=== PATIENT | female | born 1975 | race Two or more races ===

== ENCOUNTER → 2018-03-30 15:47 | Outpatient (CLI) | payer OTHER, SELFPAY ==
--- NOTE | 2018-03-30 | MM_ITS ---
MM Dig screening mamm BI w/CAD CAD Screening COMPARISON: Digital mammograms 03/15/2017 and 12/14/2015 INDICATION: There is no personal or family history of breast cancer TECHNIQUE: Standard CC and MLO images were obtained. R2 CAD reviewed. FINDINGS: Diffuse fibroglandular densities are seen throughout both breasts. Findings of the lateral symmetrical. There is no suspicious lesion and there are no suspicious microcalcifications. There are small nodes in both axilla. IMPRESSION: Fibrofatty parenchyma no suspicious lesion seen BI-RADS Category: 1 Negative RECOMMENDED FOLLOW-UP: 1YR - 1 YEAR FOLLOW-UP (A letter has been sent to the patient regarding results of the study.)
== END ==
PROVIDERS: Visit Provider Nurse Practitioner Obstetrics & Gynecology
DX: Z12.31 Encounter for screening mammogram for malignant neoplasm of breast (principal)
CPT/HCPCS: 77067

== ENCOUNTER → 2019-11-25 07:39 | Outpatient (CLI) | payer OTHER, SELFPAY ==
--- NOTE | 2019-11-25 07:42 | MM_ITS ---
PROCEDURE: MM DIG SCREENING MAMM BI W/CAD Patient Age:44Y CLINICAL INDICATION: SCREENING 44-year-old. No hormones no new complaints noncontributory family history COMPARISON: DMDBAV DIG MAMM-DX BILAT W/ADD VIEWS from 09/08/2011 DXUL MAMM [id number] from 03/14/2012 DMDBAV DIG MAMM-DX AMMY W ADD VIEWS from 12/09/2014 DMDB DIG MAMM-DX AMMY from 12/14/2015 DMDB DIG MAMM-DX AMMY W/CAD from 03/15/2017 DMDXUWAL DIG MAMM-DX UNI LT W/AVS W/CAD from 09/04/2017 [facility] MM Dig screening mamm BI w/CAD from 03/30/2018 TECHNIQUE: Standard CC and MLO images were obtained. R2 CAD reviewed. FINDINGS: Moderate dense heterogeneous breast bilaterally; technique on today's mammogram is overall angle shear operator and brighter today which accentuates all of fibroglandular elements. Consideration technique, and comparison with multiple prior studies are helpful.. Left breast: Area density noted on today's CC view was present CC spot view from 2016. But seems to dissipate on the MLO view, thus I favor reflects stable features. However follow-up left mammogram 6-8 months suggested to confirm stability: Right breast: No discrete or definitive unique new areas of concern when compared back to multiple studies, dating back to 2010 but areas of density nodularity change one-view to another and seem to be present since prior studies with some merely accentuated by today's angle shear operator technique.. Suggest right mammogram in 6-8 months and the patient returns IMPRESSION: Heterogeneous moderately dense breast There is scattered small focal areas of asymmetric density bilaterally which strongly the believe are stable-but appear accentuated by today's technique and positioning Because of this suggest bilateral mammogram in 6-8 months to better confirm stability hopefully with routine protocol thereafter bilateral , BI-RAD Category: 3 Probably Benign Finding Short Term Follow-up FOLLOW-UP: 6M -8 Month Follow-up bilateral (A letter has been sent to the patient regarding results of the study.) Dictated by: Sourav Scales MD 12/03/2019 10:09 Electronically signed by Sourav Scales MD in [place] 12/03/2019 10:09
== END ==
PROVIDERS: PCP Nurse Practitioner Obstetrics & Gynecology; Visit Provider Nurse Practitioner Obstetrics & Gynecology
DX: Z12.31 Encounter for screening mammogram for malignant neoplasm of breast (principal)
CPT/HCPCS: 77067

== ENCOUNTER 2020-07-09 17:38 | Emergency (ER) | payer OTHER, SELFPAY ==
[2020-07-09 18:13] VITALS: BP 135/87; PULSE 94; RESP 19; TEMP 36.6; O2SAT 100; BMI 22.3
--- NOTE | 2020-07-09 18:31 | HMH.EDUTC ---
[facility] [place] Clinical Impression: Sinusitis Qualifiers: Sinusitis location: unspecified location Chronicity: unspecified Qualified Code(s): J32.9 - Chronic sinusitis, unspecified Disposition: Home, Self-Care Condition on Discharge: Good Instructions: Sinusitis, Sinus Headache, DI for Sinusitis, DI for Dizziness-Nonvertigo Additional Instructions: Take medication as prescribed *Follow up with Family Doctor if no improvement or any worsening of symptoms Straight to ER if any life threatening symptoms, worse headache of her life or loss of vision or Syncope Return if needed You was given shot of SoluMedrol in the [facility] for the next several days your blood sugar may be slightly elevated and should return to normal Prescriptions: Amoxicillin/Potassium Clav [Augmentin 875-125 Tablet] 1 tab PO Q12H 7 Days #14 tab Transmission Status: Received by [id number] predniSONE [Deltasone 5mg tablet] 5 mg PO BID 5 Days #10 tab Transmission Status: Sent to [facility] Fluticasone Propionate [Flonase 50mcg nasal spray 16gm] 1 - 2 spr NS DAILY #1 bottle Transmission Status: Received by [id number] Referrals: PCPNo [Primary Care Provider] - As needed Time of Disposition: 18:56 Medical Decision Making - Aleksandar Inquiry Pt receiving controlled substance: No Aleksandar was queried for this patient: No Vital Signs: 07/09/20 18:13 Temperature 97.8 F Temperature Source Oral Pulse Rate [Right Brachial] 94 H Respiratory Rate 19 Blood Pressure [Right Arm] 135/87 Blood Pressure Mean [Right Arm] 103 Blood Pressure Source [Right Arm] Automatic Cuff Blood Pressure Position [Right Arm] Sitting 02 Sat by Pulse Oximetry 100 Oxygen Delivery Method Room Air [facility] [place] HPI - General Stated complaint: Headache, dizziness Time Seen by Provider: 07/09/20 18:31 Mode of Arrival: Ambulatory Source of Information: Patient Limitations: No Limitations Description of Symptoms (Recalled from Triage Doc. by RN): PATIENT C/O DIZZINESS X 2 WEEKS, AND VOMITING AND HEADACHE SINCE THIS MORNING HEENT Symptoms (Recalled from RN notes): Yes Resp Symptoms (Recalled from RN notes): No Skin Symptoms (Recalled from RN notes): No MS Symptoms (Recalled from RN notes): No Functional Status (Recalled from RN notes): WNL - History of Present Illness Provider Complaint: Patient states that she has been having sinus pain and pressure along with dizziness on and off when she bends over or moves quickly, pressure in her ears and at times if she moves quick it makes her sick at her stomach States that today it was still uncomfortable and her head was hurting so they brought her in Patient understands [place] but unable to speak [place] so had to use [employer] - Related Data Home Medications Medication Instructions Recorded Confirmed metformin 500 mg tablet 1,000 mg PO BID 01/03/18 07/09/20 Previous Rx's Medication Instructions Recorded Amoxicillin/Potassium Clav 1 tab PO Q12H 7 Days #14 tab 07/09/20 [Augmentin 875-125 Tablet] Fluticasone Propionate [Flonase 1 - 2 spr NS DAILY #1 bottle 07/09/20 50mcg nasal spray 16gm] predniSONE [Deltasone 5mg 5 mg PO BID 5 Days #10 tab 07/09/20 tablet] Allergies Allergy/AdvReac Type Severity Reaction Status Date / Time No Known Allergies Allergy Verified 07/09/20 18:18 - Worker's Comp Is this a Worker's Comp case?: No [facility] History - Hepatitis A Screen Drug use history?: No High risk sexual behaviors?: No History of sexually transmitted infection?: No Currently employed?: No Childcare worker?: No Do you have indoor plumbing?: Yes Do you have electricity?: Yes Attestation statement:: This patient has been screened for Hepatitis A risk factors. I have reviewed the patient's past medical history: Yes Medical History: Reports:: Diabetes Mellitus Type 2 Other Medical History: Reports: Other (High Cholesterol) Other Surgeries: Yes: Fra
[2020-07-09 19:02] VITALS: BP 135/87; PULSE 94; RESP 19; TEMP 36.6; O2SAT 100
== END 2020-07-09 19:04 | disposition home or self-care (01) ==
PROVIDERS: Emergency Provider Nurse Practitioner
DX: J32.9 Chronic sinusitis, unspecified (principal); E11.9 Type 2 diabetes mellitus without complications; Z79.84 Long term (current) use of oral hypoglycemic drugs
CPT/HCPCS: 99201

== ENCOUNTER → 2020-08-05 14:54 | Outpatient (CLI) | payer OTHER, SELFPAY ==
--- NOTE | 2020-08-05 14:59 | MM_ITS ---
PROCEDURE: MM DIG MAMM BI DX W/CAD Digital Breast Tomosynthesis Included CLINICAL INDICATION: ABN MAMM Follow-up abnormal mammogram COMPARISON: MG DMDB DIG MAMM-DX AMMY from 12/14/2015 MG DMDXUWAL DIG MAMM-DX UNI LT W/AVS W/CAD from 09/04/2017 MG [facility] MM Dig screening mamm BI w/CAD from 03/30/2018 MG MM DIG SCREENING MAMM BI W/CAD from 11/25/2019 TECHNIQUE: Standard CC and MLO images and 3D Tomosynthesis was obtained. R2 CAD reviewed. FINDINGS: Average fibroglandular tissue. No malignant appearing mass or malignant-appearing microcalcification. Unremarkable appearing right breast. Asymmetric density is present in the inferior aspect of the left breast and in the central aspect of the left breast both seen on the MLO view. These areas may only be due to overlying fibroglandular tissue. There are slightly more prominent than when compared to the previous exam. Recommend 3 month follow-up with spot compression views and left breast ultrasound. IMPRESSION: Asymmetry in left breast inferiorly and centrally. Suggest 3 month follow-up mammogram with spot views and left breast ultrasound if densities persist. BI-RAD Category: 3 Probably Benign Finding Short Term Follow-up FOLLOW-UP: 3M 3 Month Follow-up (A letter has been sent to the patient regarding results of the study.) Dictated by: Jeovany Frey MD 08/10/2020 10:28 Jeovany Frey MD in [place] 08/10/2020 10:28
== END ==
PROVIDERS: Visit Provider Nurse Practitioner
DX: R92.8 Other abnormal and inconclusive findings on diagnostic imaging of breast (principal)
CPT/HCPCS: 77062; 77066; G0279

== ENCOUNTER → 2021-01-07 13:46 | Outpatient (CLI) | payer OTHER, SELFPAY ==
--- NOTE | 2021-01-07 13:55 | MM_ITS ---
PROCEDURE: MM DIG MAMM DX UNILAT LT CAD Digital Breast Tomosynthesis Included CLINICAL INDICATION: DAVID - 3 mos fu lt breast Follow-up abnormal mammogram COMPARISON: US BL US BREAST-LT COMPLETE W/AXILLA from 09/04/2017 MG [facility] MM Dig screening mamm BI w/CAD from 03/30/2018 MG MM DIG SCREENING MAMM BI W/CAD from 11/25/2019 MG MM DIG MAMM BI DX W/CAD from 08/05/2020 US US BREAST LT COMPLETE from 01/07/2021 TECHNIQUE: Standard images performed along with spot compression views and left breast ultrasound FINDINGS: The asymmetric densities in the inferior and superior aspect of the left breast is less prominent and not persistent on the focal spot compression view.. No malignant appearing mass or malignant-appearing microcalcification. Left breast ultrasound: There is a 7 by 6 mm solid-appearing nodule in the 12 o'clock region of the left breast near the nipple. This is not significantly changed dating back to 09/04/2017exam exam. This has a linear area of increased echogenicity centrally and may be due to a intramammary lymph node or a fibroadenoma. At 9 o'clock there is a 6 by 4 mm septated appearing nodule may be due to small septated cyst. IMPRESSION: Benign findings. Recommend resume screening mammogram in July 2021 BI-RAD Category: 2 Benign Finding(s) FOLLOW-UP: 6M 6Month Follow-up (A letter has been sent to the patient regarding results of the study.) Dictated by: Jeovany Frey MD 01/08/2021 13:39 Jeovany Frey MD in [place] 01/08/2021 13:39
== END ==
PROVIDERS: PCP Family Medicine; Visit Provider Family Medicine
DX: R92.8 Other abnormal and inconclusive findings on diagnostic imaging of breast (principal)
CPT/HCPCS: 76641; 77061; 77065; G0279

== ENCOUNTER → 2021-12-17 12:32 | Outpatient (CLI) | payer OTHER, SELFPAY | PROVIDERS: Visit Provider Nurse Practitioner | DX: U07.1 COVID-19 (principal) | CPT/HCPCS: C9803; U0003; U0005 ==

== ENCOUNTER 2022-02-04 10:00 | Emergency (ER) | payer OTHER, SELFPAY ==
[2022-02-04 10:15] VITALS: BP 122/83; PULSE 70; RESP 15; O2SAT 100
[2022-02-04 10:17] VITALS: BP 122/83; PULSE 98; RESP 16; TEMP 37.1; O2SAT 99; BMI 23.4
[2022-02-04 10:28] LABS: Microscopic, Urine URINE MICROSCOPIC (MICROSCOPIC)
[2022-02-04 10:39] LABS: Appearance,Urine CLEAR (Clear); Bilirubin,Urine Negative (Negative); Blood, Urine 3+ (Negative); Color,Urine YELLOW (Yellow); Glucose,Urine (UA) 3+ (Negative); Ketones,Urine Negative (Negative); Leukocyte Esterase,Urine 2+ (Negative); Nitrate,Urine Negative (Negative); PH,Urine 6.5 (5.0-8.5); Protein,Urine 2+ (Negative); Specific Gravity, Urine 1.015 (1.005-1.030); Urobilinogen,Urine 0.2 EU/dl (0.2)
[2022-02-04 10:53] LABS: Bacteria,Urine Trace /lpf
--- NOTE | 2022-02-04 10:55 | HMH.EDGENADL ---
ED Disposition Clinical Impression: Urinary tract infection Qualifiers: Urinary tract infection type: acute cystitis Hematuria presence: without hematuria Qualified Code(s): N30.00 - Acute cystitis without hematuria Disposition: Home, Self-Care Condition on Discharge: Good Instructions: DI for Urinary Tract Infection (UTI), DI for Urinary Tract Infection in Children Prescriptions: cephALEXin [Cephalexin 500mg Tab] 500 mg PO BID #10 tab Transmission Status: Pending to [id number] Referrals: Provider,Referral, [Primary Care Provider] - - Critical Care Critical Care Time: No Attestation: On 02/04/22, the high probability of a clinically significant, sudden or life threatening deterioration of the following system(s) required my full and direct attention, intervention and personal management. The time I documented below is in addition to time spent performing reported procedures but includes the following listed in this critical care notation. Medical Decision Making - Medical Records Medical records reviewed: Yes: I reviewed the patient's medical records. - Aleksandar Inquiry Pt receiving controlled substance: No Vital Signs: 02/04/22 10:15 02/04/22 10:17 02/04/22 12:37 Temperature 98.7 F 98.7 F Temperature Source Oral Oral Pulse Rate 70 78 Pulse Rate [Left Radial] 98 H Respiratory Rate 15 16 16 Blood Pressure 122/83 128/74 Blood Pressure [Right Arm] 122/83 Blood Pressure Mean 95 Blood Pressure Mean [Right Arm] 96 02 Sat by Pulse Oximetry 100 99 Oxygen Delivery Method Room Air Room Air - Lab Data Lab Results 02/04/22 10:23: Urine Color Yellow, Urine Appearance Clear, Urine pH 6.5, Ur Specific [place] 1.015, Urine Protein 2+, Urine Glucose (UA) 3+, Urine Ketones Negative, Urine Blood 3+, Urine Nitrate Negative, Urine Bilirubin Negative, Urine Urobilinogen 0.2, Ur Leukocyte Esterase 2+ A, Urine RBC 5-10, Urine WBC 10-20, Ur Squamous Epith Cells 3-5, Urine Bacteria Trace 02/04/22 11:00: WBC 10.1, RBC 4.34, Hgb 10.6 L, Hct 33.0 L, MCV 76.2 L, MCH 24.5 L, MCHC 32.2, RDW 17.4, Plt Count 279, MPV 8.7, Neut % (Auto) 83.0 H, Lymph % (Auto) 12.9, Long % (Auto) 2.5, Eos % (Auto) 0.8, Baso % (Auto) 0.7, Neut # (Auto) 8.4 H, Lymph # (Auto) 1.3, Long # (Auto) 0.3, Eos # (Auto) 0.1, Baso # (Auto) 0.1 02/04/22 11:00: Sodium 127 L, Potassium 3.9, Chloride 96 L, Carbon Dioxide 24, Anion Gap 10.9, BUN 7, Creatinine 0.30 L, Estimated Creat Clear 193, Estimated GFR 238, Est GFR ( Amer) 289, Glucose 225 H, Calcium 8.3 L, Total Bilirubin 0.7, AST 29, ALT 17, Alkaline Phosphatase 74, Total Protein 7.9, Albumin 4.3, Globulin 3.6 H, Albumin/Globulin Ratio 1.2, Lipase 59 Result diagrams: 02/04/22 11:00 02/04/22 11:00 Orders (Tests/Meds): ED MEDICATIONS Discontinued Medications Generic Name Dose Route Start Last Admin Trade Name Freq PRN Reason Stop Dose Admin Ceftriaxone Sodium 1 gm/ 50 mls @ 100 mls/hr 02/04/22 11:00 02/04/22 11:13 Sodium Chloride IV 02/18/22 10:59 100 mls/hr Q24H MARVEL Administration Ketorolac Tromethamine 30 mg 02/04/22 10:45 02/04/22 10:54 Ketorolac 30mg/Ml Vial IV 02/04/22 10:46 30 mg ONCE ONE Administration Medical Decision Narrative: 46-year-old female presented to the emergency department with suprapubic discomfort and hematuria. Findings are most consistent with UTI. Benign abdominal examination. Work-up initiated. General Adult HPI - General Chief complaint: Urogenital-Female Stated complaint: blood in urine Time Seen by Provider: 02/04/22 10:20 Mode of Arrival: Ambulatory Limitations: No Limitations Description of Symptoms (Recalled from ER Triage Doc. by RN): pt to ed c/o blood in urine.pt states since last night she has had lower back pain, frequency and urgency with small amouts of blood in her urine. pt denies abd pain. - History of Present Illness HPI narrative: 46-year-old female presented to the emergency department w
[2022-02-04 11:09] LABS: Basophils # 0.1 K/mm3 (0-0.2); Basophils % 0.7 % (0.1-2.0); Eosinophils # 0.1 K/mm3 (0.0-0.4); Eosinophils % 0.8 % (0.1-12.0); Hemoglobin 10.6 g/dL (12.2-16.2); Lymphocytes # 1.3 K/mm3 (0.7-4.5); Lymphocytes % 12.9 % (10-50); Mean Corpuscular HGB Conc 32.2 g/dL (31.8-35.4); Mean Corpuscular Hemoglobin 24.5 pg (27.0-31.2); Mean Corpuscular Volume 76.2 fl (81-99); Mean Platelet Volume 8.7 fl (7.4-10.4); Monocytes # 0.3 K/mm3 (0.1-1.0); Monocytes % 2.5 % (1.7-9.3); Neutrophils # 8.4 K/mm3 (1.8-7.8); Platelet Count 279 K/mm3 (142-424); Red Blood Count 4.34 M/mm3 (4.20-5.40); Red Cell Distribution Width 17.4 % (11.5-17.5); White Blood Count 10.1 K/mm3 (4.8-10.8)
[2022-02-04 11:25] LABS: Chloride 96 mmol/L (98-107); Potassium 3.9 mmoL/L (3.5-5.1); Sodium 127 mmol/L (136-145)
[2022-02-04 11:27] LABS: Alanine Aminotransferase 17 U/L (12-78); Blood Urea Nitrogen 7 mg/dl (7-17); Creatinine Clearance Estimated 193 mL/min (50-200); Estimated Glomerular Filt Rate 238 ml/min (>60); GFR (African American) 289 ML/MIN (>60)
[2022-02-04 11:28] LABS: Albumin Level 4.3 g/dl (3.5-5.0); Albumin/Globulin Ratio 1.2 (1.1-1.8); Alkaline Phosphatase 74 U/L (38-126); Anion Gap 10.9 mEq/L (5-15); Aspartate Amino Transferase 29 U/L (14-36); Bilirubin,Total 0.7 mg/dl (0.2-1.3); Calcium 8.3 mg/dl (8.4-10.2); Carbon Dioxide 24 mmol/L (22.0-30.0); Globulin 3.6 g/dL (1.3-3.2); Glucose 225 mg/dl (74-100); Lipase 59 U/L (23-300); Total Protein,Serum 7.9 g/dl (6.3-8.2)
[2022-02-04 12:37] VITALS: BP 128/74; PULSE 78; RESP 16; TEMP 37.1; O2SAT 99
--- NOTE | 2022-02-05 15:16 | PC.NURSE ---
PT CALLED REGARDING ANTIBIOTICS, NO SCRIPT GIVEN, REVIEWED WITH DR WILIAN GANDARA FOR OMNICEF 300MG BID X 14 DAYS CALLED TO [facility]
== END 2022-02-04 12:39 | disposition home or self-care (01) ==
PROVIDERS: Emergency Provider Emergency Medicine
DX: N30.00 Acute cystitis without hematuria (principal); E11.9 Type 2 diabetes mellitus without complications; E78.5 Hyperlipidemia, unspecified; Z79.899 Other long term (current) drug therapy
CPT/HCPCS: 80053; 81001; 83690; 85025; 87086; 96365; 96375; 99284; J0696

== ENCOUNTER → 2022-03-03 10:38 | Outpatient (CLI) | payer OTHER, SELFPAY ==
[2022-03-03 12:48] LABS: Chloride 103 mmol/L (98-107); Potassium 4.1 mmoL/L (3.5-5.1); Sodium 135 mmol/L (136-145)
[2022-03-03 12:50] LABS: Alanine Aminotransferase 15 U/L (12-78); Aspartate Amino Transferase 24 U/L (14-36); Blood Urea Nitrogen 8 mg/dl (7-17); Estimated Glomerular Filt Rate 171 ml/min (>60); GFR (African American) 207 ML/MIN (>60)
[2022-03-03 12:51] LABS: Albumin Level 4.2 g/dl (3.5-5.0); Albumin/Globulin Ratio 1.4 (1.1-1.8); Alkaline Phosphatase 83 U/L (38-126); Bilirubin,Total 0.5 mg/dl (0.2-1.3); Calcium 8.4 mg/dl (8.4-10.2); Chol/HDL Ratio 8.8 (1-3.5); Cholesterol 255 mg/dl (140-200); Globulin 3.1 g/dL (1.3-3.2); Glucose 222 mg/dl (74-100); HDL Cholesterol 29 mg/dl (40-60); Total Protein,Serum 7.3 g/dl (6.3-8.2)
[2022-03-03 13:00] LABS: Triglycerides 1064 mg/dl (30-150)
[2022-03-03 13:02] LABS: Direct LDL Cholesterol 31.21 mg/dL (100-129)
[2022-03-03 13:34] LABS: Hemoglobin A1C 11.8 % (4.0-6.0)
[2022-03-03 14:55] LABS: Anion Gap 11.1 mEq/L (5-15); Carbon Dioxide 25 mmol/L (22.0-30.0)
== END ==
PROVIDERS: Visit Provider Family Medicine
DX: R73.9 Hyperglycemia, unspecified (principal)
CPT/HCPCS: 36415; 80053; 80061; 83036

== ENCOUNTER → 2022-11-01 13:19 | Outpatient (CLI) | payer OTHER, SELFPAY ==
--- NOTE | 2022-11-01 13:33 | MM_ITS ---
PROCEDURE INFORMATION: Exam: MG Bilateral Screening 3D Mammography Exam date and time: 11/01/2022 1:51 PM Age: 46 years old Clinical indication: Screening examination TECHNIQUE: Imaging protocol: Bilateral Screening tomosynthesis and 2D mammography including computer-aided detection (CAD) when performed. COMPARISON: 1. MG MM DIG MAMM DX UNILAT LT CAD 01/07/2021 1:57 PM 2. MG MM DIG MAMM BI DX W/CAD 08/05/2020 3:06 PM 3. MG MM DIG SCREENING MAMM BI W/CAD 11/25/2019 8:17 AM FINDINGS: MAMMOGRAPHY: Breast composition: The breasts are heterogeneously dense, which may obscure small masses. Mass: No suspicious masses. Architectural distortion: No suspicious distortion. Calcifications: No suspicious calcifications. Asymmetric density: None. Skin thickening: None. Axillary adenopathy: None. IMPRESSION: No mammographic evidence of malignancy. Annual screening is recommended unless otherwise clinically indicated. ASSESSMENT: BI-RADS Category 1: Negative
== END ==
PROVIDERS: PCP Nurse Practitioner Family; Visit Provider Nurse Practitioner Family
DX: Z12.31 Encounter for screening mammogram for malignant neoplasm of breast (principal)
CPT/HCPCS: 77063; 77067

== ENCOUNTER 2025-10-25 11:00 | Outpatient (CLI) | payer SELFPAY | END 2025-10-25 23:59 | disposition home or self-care (01) | LOC: LAB.DROPOF 10-28 12:24 | PROVIDERS: PCP Nurse Practitioner Family; Visit Provider Student in an Organized Health Care Education/Training Program | DX: J06.9 Acute upper respiratory infection, unspecified (principal) ==